=== PATIENT | male | born 1965 | race African-American/Black ===

== ENCOUNTER 2017-02-09 18:44 | Emergency (ER) | payer OTHER ==
--- NOTE | 2017-02-09 20:11 | NUR ---
CALLED PT IN [place], NO RESPONSE
== END 2017-02-09 20:12 | disposition home or self-care (01) ==
LOC: ER 19:00
DX: Z53.21 Procedure and treatment not carried out due to patient leaving prior to being seen by health care provider (principal)

== ENCOUNTER 2017-02-09 22:26 | Emergency (ER) | payer OTHER ==
[~2017-02-09] VITALS: Ht 175.3 cm; Wt 108.9 kg
[2017-02-09 22:42] VITALS: BP 131/73
[2017-02-09] MEDS ORDERED: AZITHROMYCIN 250 MG TABLET PO ONE (23:00)
[2017-02-09] MEDS ORDERED: CEFTRIAXONE 500 MG VIAL IM ONE (23:00)
[2017-02-09] MEDS ORDERED: CEFTRIAXONE 500 MG VIAL ONE (23:18)
[2017-02-09] MEDS ORDERED: AZITHROMYCIN 250 MG TABLET ONE (23:19)
[2017-02-09] MEDS ORDERED: LIDOCAINE /MPF 1% VIAL 5 ML VIAL ONE (23:19)
== END 2017-02-09 23:38 | disposition home or self-care (01) ==
LOC: ER 22:31
DX: S30.0XXA Contusion of lower back and pelvis, initial encounter (principal); N34.2 Other urethritis; J06.9 Acute upper respiratory infection, unspecified; V03.99XA Pedestrian with other conveyance injured in collision with car, pick-up truck or van, unspecified whether traffic or nontraffic accident, initial encounter; Y93.89 Activity, other specified; Y92.413 State road as the place of occurrence of the external cause; Y99.8 Other external cause status
CPT/HCPCS: 87491; 87591; 96372; 99284; A4606; J0696; J3490; Z7610